=== PATIENT | female | born 1965 | race Caucasian/White ===

== ENCOUNTER 2016-07-10 05:44 | Emergency (ER) | payer OTHER ==
[2016-07-10] MEDS ORDERED: IOPAMIDOL 300 (61%) 100 ML VIAL IV ONE (05:45)
[2016-07-10 07:09] LABS: SPECIFIC GRAVITY 1.025 (1.001-1.030); URINE BILIRUBIN NEGATIVE (NEGATIVE); URINE BLOOD TRACE (NEGATIVE); URINE GLUCOSE (UA) NEGATIVE (NEGATIVE); URINE LEUKOCYTE ESTERASE NEGATIVE (NEGATIVE); URINE NITRITE NEGATIVE (NEGATIVE); URINE PROTEIN TRACE (NEGATIVE); URINE UROBILINOGEN NORMAL (0-1 mg/dl)
[2016-07-10 07:11] LABS: URINE APPEARANCE CLEAR; URINE COLOR YELLOW
[2016-07-10 07:20] LABS: URINE BACTERIA 3+; URINE WBC 0-1 /hpf
[2016-07-10 07:24] LABS: ABSOLUTE NEUTROPHIL COUNT 6.7 K/mm3 (1.8-7.7); BASO % 0.3 % (0.2-1.0); EOS # 0.1 (0.0-0.5); EOS % 0.7 % (0.9-2.9); HEMATOCRIT 39.5 % (37.0-47.0); HEMOGLOBIN 13.1 gm/l (12.0-16.0); IMM NEUT% 0.3 % (0-1); LYMPH # 1.6 (1.0-4.8); LYMPH % 17.8 % (15-45); MEAN CELL VOLUME 87.8 fl (81.0-99.0); MEAN CORPUSCULAR HEMOGLOBIN 29.1 pg (27.0-31.0); MEAN CORPUSCULAR HGB CONC 33.2 g/dl (33.0-37.0); MEAN PLATELET VOLUME 9.8 fl (7.4-10.4); MONO # 0.4 (0.0-0.8); NEUT % 75.9 % (43-75); PLATELET COUNT 293 K/mm3 (130-400); RED CELL DISTRIBUTION WIDTH 12.5 % (11.5-14.5)
[2016-07-10] MEDS ORDERED: SODIUM CHLORIDE 0.9% 1,000 ML ONE (07:25)
[2016-07-10] MEDS ORDERED: ONDANSETRON 4 MG/2ML 2 ML VIAL ONE (07:25)
[2016-07-10] MEDS ORDERED: DIPHENHYDRAMINE HCL 50 MG/1 ML VIAL ONE (07:26)
[2016-07-10] MEDS ORDERED: KETOROLAC TROMETHAMINE 30 MG/ML 1 ML VIAL ONE (07:26)
[2016-07-10 07:42] LABS: ALB/GLOB RATIO 1.4 (>1.0); ALBUMIN 3.9 gm/dL (3.5-5.7); CALCIUM 8.9 mg/dL (8.6-10.3)
--- NOTE | 2016-07-10 08:38 | US ---
Name: LOGAN APARICIO Exam: Pelvic ultrasound Comparison: None Clinical history: Pelvic pain Findings: Transabdominal and endovaginal imaging of the pelvis was performed. Bladder is partially imaged. Uterus is enlarged at 10.5 x 8.5 x 5.5 cm. Uterine echotexture is quite heterogeneous. There are many leiomyomas measuring up to 4.1 cm in diameter. These leiomyomas do distort the endometrial cavity. Uterine cavity is irregular and contains multiple fluid collections. The endometrial lining is irregularly thickened. Overall AP dimension of the uterine cavity is 1.1 cm. There is no free fluid. Neither ovary is identified. On the transabdominal images in the right lower quadrant however there is a 2.2 x 12.4 x 1.9 cm simple cyst. It is unknown whether this is a mesenteric cyst or paraovarian cyst. Impression: 1. Enlarged leiomyomatous uterus containing many 4.1 cm less leiomyomas 2. Deformed uterine cavity containing fluid and irregular endometrial lining. Cervical stenosis and endometrial carcinoma must be considered. If further evaluation is clinically warranted, MRI with contrast would be beneficial. 3. 2.4 cm simple right lower quadrant cyst 4. Nonvisualization of the ovaries Note: The above report was uploaded to [facility]'s electronic medical records system at 0834 hours.
--- NOTE | 2016-07-10 10:05 | CT ---
Name: LOGAN APARICIO Exam: CT abdomen pelvis with contrast Comparison: None History: Right lower quadrant pain Procedure: Helical CT using multidetector technique was applied to the abdomen and pelvis during intravenous administration of 100 cc Isovue-300. No oral contrast was given per ordering physician. An automated dose reduction technique was used to minimize patient radiation dose. Findings: CT abdomen (contrast enhanced): Lung bases are clear. Heart is nonenlarged. There is no pericardial effusion. In the left hepatic lobe, there is a poorly marginated hypodensity that measures 2.1 cm. Nonemergent ultrasound follow-up is recommended. Gallbladder is nondistended. There is no suspicious biliary dilation. Pancreas, spleen, adrenal glands, kidneys, aorta, IVC and portal vein are normal. Stomach and small bowel are normal. There is scattered colonic diverticulosis. There is no free air, free fluid or suspicious adenopathy. Fat filled umbilical hernia is present. There is degenerative disease at L4-5 and L5-S1. CT pelvis (contrast enhanced): Bladder is normal. Uterus is enlarged and leiomyomatous. As on ultrasound, there are central uterine fluid collections. MRI with contrast is recommended. There is a 2.9 cm right adnexal cyst which is seen to be simple cyst by ultrasound. There is a 1.5 cm left adnexal cyst which was not seen on ultrasound. Sigmoid diverticulosis is present. Small bowel and appendix are normal. There is no free air, free fluid or suspicious adenopathy. Impression: 1. Normal appendix 2. No bowel obstruction 3. Colonic diverticulosis without current evidence for diverticulitis 4. Bilateral adnexal cysts 5. Enlarged leiomyomatous uterus. As on ultrasound, there is central fluid collections. Follow-up MRI with contrast is recommended. 6. 2.1 cm indeterminate hypodensity within the left hepatic lobe. Follow-up ultrasound is recommended. Note: The above report was uploaded to [facility]'s electronic medical records system at 1000 hours.
== END 2016-07-10 11:27 | disposition home or self-care (01) ==
LOC: ED 05:44
DX: R10.2 Pelvic and perineal pain (principal); R11.0 Nausea; N93.9 Abnormal uterine and vaginal bleeding, unspecified